=== PATIENT | female | born 1970 | race Caucasian/White ===

== ENCOUNTER → 2016-08-06 | Outpatient (CLI) | payer BC ==
[2016-08-06 09:01] LABS: Basophils % (A) 0 %; CH 32.4; CHCM 34.2; Eosinophils # (A) 0.2 k/uL (0-0.7); Eosinophils % (A) 3 %; HCT 43.1 % (34.0-46.0); HDW 2.59; HGB 14.2 gm/dL (11.4-16.0); Luc # (Auto) 0.26; Luc % (Auto) 4; Lymphocytes # (A) 2.2 k/uL (1.0-4.8); Lymphocytes % (A) 30 %; MCH 31.2 pg (25.0-35.0); MCHC 32.8 g/dL (31.0-37.0); MCV 95.1 fL (80.0-100.0); Mean Platelet Volume 7.1; Monocytes # (A) 0.3 k/uL (0-1.0); Monocytes % (A) 4 %; Neutrophils # (A) 4.3 k/uL (1.3-7.7); Neutrophils % (A) 59 %; RBC 4.54 m/uL (3.80-5.40); RDW 13.9 % (11.5-15.5); WBC 7.3 k/uL (3.8-10.6); WBC (Perox) 7.59
[2016-08-06 09:13] LABS: ALT 70 U/L (9-52); AST 79 U/L (14-36); Alkaline Phosphatase 78 U/L (38-126); Anion Gap 9 mmol/L; Blood Urea Nitrogen 13 mg/dL (7-17); Calcium 9.5 mg/dL (8.4-10.2); Carbon Dioxide 28 mmol/L (22-30); Chloride 100 mmol/L (98-107); Cholesterol 227 mg/dL (<200); Glucose 96 mg/dL (74-99); HDL Cholesterol 58 mg/dL (40-60); Non-African American GFR(MDRD) 50 (>60 ml/min/1.73 sqM); Potassium 4.3 mmol/L (3.5-5.1); Sodium 137 mmol/L (137-145); Total Bilirubin 1.1 mg/dL (0.2-1.3); Total Protein 7.3 g/dL (6.3-8.2); Triglycerides 164 mg/dL (<150)
[2016-08-06 12:05] LABS: Creatinine,Urine Random 44.8 mg/dL
[2016-08-07 05:04] LABS: Microalbum/Creatinine Ratio,Ur < 5.0 (<30)
[2016-08-07 09:24] LABS: Mis test requested (Non-blood) TP Urine Random
== END | disposition home or self-care (01) ==
LOC: LABWHC1 08:36
PROVIDERS: ATTEND Nurse Practitioner Adult Health
DX: Z00.00 Encounter for general adult medical examination without abnormal findings (principal); E03.9 Hypothyroidism, unspecified; Z52.4 Kidney donor
CPT/HCPCS: 36415; 80053; 80061; 82043; 82306; 82570; 84156; 84439; 84443; 85025

== ENCOUNTER → 2016-08-12 | Outpatient (CLI) | payer BC ==
--- NOTE | 2016-08-12 07:56 | US ---
EXAMINATION TYPE: US liver DATE OF EXAM: 08/12/2016 7:40 AM COMPARISON: NONE CLINICAL HISTORY: R74.8 Elevated Liver Enzymes; on thyroid medication; left nephrectomy for donation purpose; gallbladder removed EXAM MEASUREMENTS: Liver Length: 18.9 cm Gallbladder Wall: surgically removed CBD: 0.3 cm Right Kidney: 12.3 x 6.2 x 4.4 cm TECHNOLOGIST IMPRESSION: Pancreas: hyperechoic Liver: hyperechoic suggests fatty liver; enlarged Gallbladder: surgically absent CBD: wnl Right Kidney: wnl IMPRESSION: HEPATOMEGALY AND FATTY INFILTRATION OF THE LIVER.
== END | disposition home or self-care (01) ==
LOC: RADUSWWP 07:23
PROVIDERS: ATTEND Family Medicine
DX: K76.0 Fatty (change of) liver, not elsewhere classified (principal); R16.0 Hepatomegaly, not elsewhere classified
CPT/HCPCS: 76705

== ENCOUNTER → 2017-01-14 | Outpatient (CLI) | payer BC ==
--- NOTE | 2017-01-14 18:11 | US ---
EXAMINATION TYPE: US thyroid st tissue head/neck DATE OF EXAM: 01/14/2017 COMPARISON: NONE CLINICAL HISTORY: E03.9 hypothyroidism, history of graves disease. GLAND SIZE: Right Lobe: 2.5 x 1.1 x 0.6 cm Overall Parenchyma: homogenous Left Lobe: 3.6 x 1.2 x 0.5 cm Overall Parenchyma: homogeneous Isthmus Thickness: 0.2 cm NODULES RIGHT: # of nodules measured on right: 0 LEFT: # of nodules measured on left: 0 ISTHMUS: # of nodules measured in the isthmus: 0 Bilateral neck scanned, no evidence of lymphadenopathy. IMPRESSION: NORMAL THYROID ULTRASOUND.
== END ==
LOC: RADUSWWP 16:12
PROVIDERS: ATTEND Family Medicine
DX: E03.9 Hypothyroidism, unspecified (principal)
CPT/HCPCS: 76536

== ENCOUNTER → 2017-07-05 | Outpatient (CLI) | payer OTHER | END | disposition home or self-care (01) | LOC: LABWHC1 11:36 | PROVIDERS: ATTEND Internal Medicine | DX: Z52.4 Kidney donor (principal) | CPT/HCPCS: 82043; 82565; 82570; 84156 ==

== ENCOUNTER → 2017-07-05 | Outpatient (CLI) | payer BC ==
[2017-07-05 12:39] LABS: C Reactive Protein 6.4 mg/L (<10.0)
[2017-07-05 12:41] LABS: HGB 13.2 gm/dL (11.4-16.0); MCH 32.1 pg (25.0-35.0); MCHC 33.7 g/dL (31.0-37.0); MCV 95.3 fL (80.0-100.0); Platelet Count 200 k/uL (150-450); RDW 13.4 % (11.5-15.5); WBC 6.4 k/uL (3.8-10.6)
[2017-07-05 13:47] LABS: Erythrocyte Sedimentation Rate 7 mm/hr (0-20)
[2017-07-05 20:12] LABS: Rheumatoid Factor 6 IU/mL (0-15); Streptolysin O Ab(ASO) 82 IU/mL (0-200)
[2017-07-06 08:47] LABS: Lyme IgG/IgM 0.1 Index
[2017-07-06 11:38] LABS: HLA B27 NEGATIVE
== END | disposition home or self-care (01) ==
LOC: LABWHC1 11:39
PROVIDERS: ATTEND Orthopaedic Surgery
DX: M21.41 Flat foot [pes planus] (acquired), right foot (principal); M19.071 Primary osteoarthritis, right ankle and foot; M65.871 Other synovitis and tenosynovitis, right ankle and foot; M06.9 Rheumatoid arthritis, unspecified
CPT/HCPCS: 36415; 84443; 85027; 85652; 86038; 86060; 86140; 86431; 86618; 86812

== ENCOUNTER → 2017-09-14 | Outpatient (CLI) | payer BC ==
--- NOTE | 2017-09-14 09:02 | MM ---
Reason for exam: screening (asymptomatic). Last mammogram was performed 2 years and 6 months ago. Physical Findings: A clinical breast exam by your physician is recommended on an annual basis and results should be correlated with mammographic findings. MG Screening Mammo w CAD Bilateral CC and MLO view(s) were taken. Prior study comparison: March 22, 2015, bilateral MG screening mammo w CAD. May 16, 2012, bilateral digital screening mammo w/CAD. There are scattered fibroglandular densities. There is no discrete abnormality. No significant changes when compared with prior studies. ASSESSMENT: Negative, BI-RAD 1 RECOMMENDATION: Routine screening mammogram of both breasts in 1 year.
== END | disposition home or self-care (01) ==
LOC: RADMAMWWP 06:51
PROVIDERS: ATTEND Family Medicine
DX: Z12.31 Encounter for screening mammogram for malignant neoplasm of breast (principal)
CPT/HCPCS: 77067

== ENCOUNTER → 2018-08-15 | Outpatient (CLI) | payer BC ==
[2018-08-15 12:12] VITALS: BMI 38.7
== END | disposition home or self-care (01) ==
LOC: LABWHC1 09:00
PROVIDERS: ATTEND Family Medicine
DX: E66.9 Obesity, unspecified (principal); Z68.39 Body mass index [BMI] 39.0-39.9, adult
CPT/HCPCS: 97802